=== PATIENT | female | born 1990 | race Asian ===

== ENCOUNTER 2018-05-06 13:01 | Outpatient (CLI) | payer BC ==
[2018-05-06] MEDS ORDERED: IOHEXOL 0 ML IV ONE (13:37)
[2018-05-06] MEDS ORDERED: IOHEXOL 50 ML IV ONE (13:37)
== END 2018-05-06 20:00 | disposition home or self-care (01) ==
LOC: SRD 13:01
PROVIDERS: ATTEND Specialist
DX: N97.9 Female infertility, unspecified (principal)
CPT/HCPCS: 74740; C1751; Q9967

== ENCOUNTER 2018-07-10 08:30 | Day surgery (SDC) | payer BC ==
[~2018-07-10] VITALS: Ht 165.1 cm; Wt 70.3 kg
[~2018-07-10 08:30] MED LIST: CEFAZOLIN SOD 1 GM in D5W 50 ML IV ONE
[2018-07-10] MEDS ORDERED: LR 1,000 ML IV.SOLN IV ONE (12:55)
[2018-07-10] MEDS ORDERED: GLYCOPYRROLATE 0.2 MG/ML VIAL IJ ONE (12:55)
[2018-07-10] MEDS ORDERED: ONDANSETRON HCL 4 MG/2 ML VIAL IVP ONE (12:55)
[2018-07-10] MEDS ORDERED: SEVOFLURANE 15 MIN GAS INH ONE (12:55)
[2018-07-10] MEDS ORDERED: NS IRRIG SOLN 1000 ML IR ONE (12:55)
[2018-07-10] MEDS ORDERED: NEOSTIGMINE METHYLSULFATE 1 MG/ML, 10 ML VIAL IVP ONE (12:55)
[2018-07-10] MEDS ORDERED: BUPIVACAINE /EPINEPHRINE/PF 0.25% 30 ML VIAL INJ ONE (12:55)
[2018-07-10] MEDS ORDERED: MIDAZOLAM HCL 5 MG/5 ML VIAL IVP ONE (12:55)
[2018-07-10] MEDS ORDERED: KETOROLAC TROMETHAMINE 30 MG VIAL IVP ONE (12:55)
[2018-07-10] MEDS ORDERED: ROCURONIUM BROMIDE 10 MG/ML (ZEMURON) IV ONE (12:55)
[2018-07-10] MEDS ORDERED: fentaNYL CITRATE/PF 100 MCG/2 ML AMP IVP ONE (12:55)
[2018-07-10] MEDS ORDERED: PROPOFOL 200MG/ 20ML VIAL (DIPRIVAN) IV ONE (12:55)
[2018-07-10] MEDS ORDERED: NS 1000 ML IV.SOLN IV ONE (12:55)
[2018-07-10] MEDS ORDERED: IOHEXOL 300 mgI/mL, 50 mL INFUS..BTL IV ONE (12:55)
[2018-07-10] MEDS ORDERED: IOHEXOL 50 ML IV ONE (13:19)
[2018-07-10] MEDS ORDERED: ONDANSETRON HCL 4 MG/2 ML VIAL IVP PRN ×2 (13:45→15:00)
[2018-07-10] MEDS ORDERED: fentaNYL CITRATE/PF 100 MCG/2 ML AMP IVP PRN ×2 (13:45)
[2018-07-10] MEDS ORDERED: KETOROLAC TROMETHAMINE 30 MG VIAL IVP PRN (13:45)
[2018-07-10] MEDS ORDERED: HYDROcodone/ACETAMIN 5-325 MG TAB (NORCO/ VICODIN) PO PRN (15:00)
[2018-07-10] MEDS ORDERED: OXYCODONE/ACETAMINOPHEN 5-325 TABLET PO PRN ×2 (15:00)
[2018-07-10] MEDS ORDERED: fentaNYL CITRATE/PF 100 MCG/2 ML AMP ONE (15:09)
[2018-07-10 16:04] VITALS: BP_SYST 108
[2018-07-10] MEDS ORDERED: HYDROcodone/ACETAMIN 5-325 MG TAB (NORCO/ VICODIN) ONE (16:04)
== END 2018-07-10 17:15 | disposition home or self-care (01) ==
LOC: SDS 08:30 → SMU 08:30 → SDS 17:15
PROVIDERS: ATTEND Specialist
DX: N97.1 Female infertility of tubal origin (principal); Z79.899 Other long term (current) drug therapy; N73.6 Female pelvic peritoneal adhesions (postinfective)
CPT/HCPCS: 58340; 58662; 76000; 88305; C1727; C1758; J0690; J1885; J2250; J2405; J2704; J2710; J3010; J3490 ×2; J7030; J7060; J7120; Q9967

== ENCOUNTER 2019-11-10 04:28 | Inpatient (IN) | payer BC, OTHER ==
[~2019-11-10] VITALS: Ht 165.1 cm; Wt 72.6 kg
[2019-11-10 04:28] VITALS: BP_SYST 135
[2019-11-10] MEDS ORDERED: NACL 0.9% 1,000 ML IV ONE (04:31)
[2019-11-10] MEDS ORDERED: PREN1TAB81 PO (04:45)
[2019-11-10] MEDS ORDERED: KETOROLAC TROMETHAMINE 30 MG VIAL IVP ONE (04:45)
[2019-11-10] MEDS ORDERED: MORPHINE 2 MG/ML INJ. SYRINGE IVP ONE (05:15)
[2019-11-10 05:20] LABS: BASOPHILS % (AUTO) 0.5 % (0.0-2.0); EOSINOPHILS % (AUTO) 0.6 % (0.0-4.0); HEMATOCRIT 35.5 % (36-48); HEMOGLOBIN 11.7 g/dL (12.0-16.0); LYMPHOCYTES # (AUTO) 1.6 K/uL (1.0-5.5); MEAN CORPUSCULAR HEMOGLOBIN 26 pg (27-31); MEAN CORPUSCULAR HGB CONC 33 % (32-36); MEAN CORPUSCULAR VOLUME 78 fL (79.0-98.0); MONOCYTES # (AUTO) 0.4 K/uL (0.0-1.0); MONOCYTES % (AUTO) 5.7 % (1.7-9.3); NEUTROPHILS # (AUTO) 4.4 K/uL (1.8-7.7); NEUTROPHILS % (AUTO) 68.2 % (40.0-70.0); PLATELET COUNT (AUTO) 236 K/uL (130-430); RED BLOOD CELL COUNT(AUTO) 4.56 MIL/uL (4.2-6.2); RED CELL DISTRIBUTION WIDTH 16.5 % (9.0-15.0); WHITE BLOOD COUNT (AUTO) 6.5 K/uL (4.8-10.8)
[2019-11-10 05:33] LABS: CALCIUM 8.2 mg/dL (8.4-11.0); CREATININE 0.77 mg/dL (0.55-1.30); POTASSIUM 3.8 mmol/L (3.5-5.1)
[2019-11-10 05:56] LABS: ALBUMIN 3.4 g/dL (3.4-4.8); TOTAL BILIRUBIN 0.2 mg/dL (0.0-1.0)
[2019-11-10] MEDS ORDERED: ONDANSETRON HCL 4 MG/2 ML VIAL IVP PRN ×3 (06:30→10:00)
[2019-11-10] MEDS ORDERED: MORPHINE SULFATE 10 MG/ML VIAL IVP PRN (06:30)
[2019-11-10 07:33] VITALS: BP_SYST 114
[2019-11-10 08:52] LABS: BILIRUBIN,URINE NEGATIVE (NEGATIVE); BLOOD, URINE 3+ (NEGATIVE); CLARITY/URINE CLOUDY (CLEAR); COLOR,URINE ORANGE (YELLOW); GLUCOSE,URINE NEGATIVE (NEGATIVE); KETONES,URINE NEGATIVE (NEGATIVE); LEUKOCYTE ESTERASE ,URINE TRACE (NEGATIVE); NITRITE, URINE NEGATIVE (NEGATIVE); PH,URINE 5.5 (5.0-8.0); PROTEIN URINE TRACE (NEGATIVE); UROBILINOGEN,URINE 0.2 (0.2-1.0)
[2019-11-10 09:04] LABS: BACTERIA,URINE FEW /HPF (None Seen); MUCUS,URINE 1+ /LPF (None Seen); RBC,URINE >100 /HPF (0-3)
[2019-11-10] MEDS ORDERED: TRIAMCINOLONE ACETONIDE 40 MG/ML ONE ×2 (09:26→10:05)
[2019-11-10] MEDS ORDERED: MORPHINE 2 MG/ML INJ. SYRINGE IVP PRN (09:30)
[2019-11-10] MEDS ORDERED: METOCLOPRAMIDE HCL 10 MG/2 ML VIAL IVP PRN (09:30)
[2019-11-10] MEDS ORDERED: MIDAZOLAM HCL 2 MG/2 ML VIAL (VERSED) IVP PRN (09:30)
[2019-11-10] MEDS ORDERED: MEPERIDINE HCL/PF 25 MG/ML DISP.SYRIN IVP PRN (09:30)
[2019-11-10] MEDS ORDERED: HYDROmorphone 1 MG INJ. 1 MG/ML AMPUL IVP PRN ×2 (09:30)
[2019-11-10] MEDS ORDERED: LR 1,000 ML IV SCH (09:30)
[2019-11-10] MEDS ORDERED: MIDAZOLAM HCL 5 MG/5 ML VIAL IVP PRN (09:50)
[2019-11-10] MEDS ORDERED: MORPHINE 4 MG/ML INJ. SYRINGE IVP PRN ×2 (09:54→09:55)
[2019-11-10] MEDS ORDERED: OXYCODONE/ACETAMINOPHEN 5-325 TABLET PO PRN ×2 (10:00)
[2019-11-10] MEDS ORDERED: HYDROcodone/ACETAMIN 5-325 MG TAB (NORCO/ VICODIN) PO PRN (10:00)
[2019-11-10] MEDS ORDERED: ROCURONIUM BROMIDE 10 MG/ML (ZEMURON) ONE (10:05)
[2019-11-10] MEDS ORDERED: CEFAZOLIN 2 GM IVPB PREMIX 50 ML IV ONE (10:05)
[2019-11-10] MEDS ORDERED: ONDANSETRON HCL 4 MG/2 ML VIAL ONE (10:05)
[2019-11-10] MEDS ORDERED: NS 50 ML BAG IV ONE (10:05)
[2019-11-10] MEDS ORDERED: fentaNYL CITRATE/PF 100 MCG/2 ML AMP ONE (10:05)
[2019-11-10] MEDS ORDERED: NS 1000 ML IV.SOLN IV ONE (10:05)
[2019-11-10] MEDS ORDERED: ISOFLURANE 15 MIN GAS INH ONE (10:05)
[2019-11-10] MEDS ORDERED: SUGAMMADEX SODIUM 200 MG/2 ML VIAL IV ONE (10:05)
[2019-11-10] MEDS ORDERED: BUPIVACAINE /EPINEPHRINE/PF 0.5% 30 ML VIAL INJ ONE (10:05)
[2019-11-10] MEDS ORDERED: PROPOFOL 200MG/ 20ML VIAL (DIPRIVAN) IV ONE (10:05)
[2019-11-10] MEDS ORDERED: MIDAZOLAM HCL 5 MG/ML VIAL (VERSED) IV ONE (10:05)
[2019-11-10] MEDS ORDERED: NS IRRIG SOLN 1000 ML IR ONE (10:05)
[2019-11-10] MEDS ORDERED: LR 1,000 ML IV.SOLN IV ONE (10:05)
[2019-11-10 10:27] VITALS: BP_SYST 113
[2019-11-10 12:36] VITALS: BP_SYST 126
[2019-11-10] MEDS ORDERED: HYDR-4272 PO (13:34)
[2019-11-10 13:59] VITALS: BP_SYST 126
== END 2019-11-10 14:00 | disposition home or self-care (01) | DRG 819 ==
LOC: SED 04:28 → SMU 06:50
PROVIDERS: ADMIT Specialist; ATTEND Specialist
PROC: 0UB54ZZ Excision of Right Fallopian Tube, Percutaneous Endoscopic Approach (ICD-10-PCS; 2019-11-10)
PROC: 10T24ZZ Resection of Products of Conception, Ectopic, Percutaneous Endoscopic Approach (ICD-10-PCS; principal; 2019-11-10 09:00)
DX: O00.101 Right tubal pregnancy without intrauterine pregnancy (principal)
CPT/HCPCS: 36415; 76801; 76817; 80053; 81000-TC; 84702-TC; 85025; 86901; 87081; 87086; 88305; 96374; 96375; 99285; C9399; J0690; J1885; J2250; J2270; J2405; J2704; J3010; J3301; J3465; J3490; J7030; J7120